=== PATIENT | male | born 1940 | race Caucasian/White ===

== ENCOUNTER 2020-11-16 12:45 | Day surgery (SDC) | payer MEDICARE, MEDICAID ==
[~2020-11-16] VITALS: Ht 170.2 cm; Wt 77.3 kg
[~2020-11-16 12:45] MED LIST: ASPI81CH33 PO; BREO1INH3 INH; DONE5TAB82 PO; EZET10TA21 PO; GLIP10TA PO; LEVO50TA5 PO; LOPR1TAB6 PO; LR 1,000 ML IV SCH; NITR0.4S14 SL; NOXI1TAB PO; PANT40TA29 PO; PLAV1TAB2 PO; PRAV40TA2 PO; SING5CHW23 PO; SLOWTAB2 PO; TERA10CA3 PO; VENTAER INH; ZOLO50TA PO; [UNRECOGNIZED DRUG - OTHER] PO; ceFAZolin SOD 2 GM in IV 1 EA IV ONE
[2020-11-16] MEDS ORDERED: VITACAP8 PO (13:11)
[2020-11-16] MEDS ORDERED: VANCOMYCIN 1000MG/20ML VIAL As Ordered ONE (13:16)
[2020-11-16] MEDS ORDERED: LIDOCAINE 1% SDV 30ML VIAL As Ordered ONE (13:16)
[2020-11-16] MEDS ORDERED: POLYSPORIN TOPICAL OINTMENT 15GM As Ordered ONE (13:17)
[2020-11-16] MEDS ORDERED: MIDAZOLAM INJ 2MG/2ML VIAL (J2250 PER 1MG) As Ordered ONE (13:35)
[2020-11-16] MEDS ORDERED: fentaNYL 100 MCG/2 ML INJECTION (J3010) As Ordered ONE (13:36)
[2020-11-16] MEDS ORDERED: propofoL 200 MG/20 ML VIAL As Ordered ONE (13:37)
[2020-11-16] MEDS ORDERED: ceFAZolin SOD 1 GM in D5W MINI-BAG PLUS 50 ML IV ONE (13:40)
[2020-11-16] MEDS ORDERED: LIDOCAINE 2% 100MG/5ML SDV (FOR ANES.) As Ordered ONE (13:44)
[2020-11-16] MEDS ORDERED: ONDANSETRON 4MG/2ML VIAL As Ordered ONE (15:46)
--- NOTE | 2020-11-16 16:06 | RO ---
OPERATIVE NOTE DATE OF OPERATION: 11/16/2020 PREOPERATIVE DIAGNOSIS: Pacemaker battery depletion. POSTOPERATIVE DIAGNOSIS: Pacemaker battery depletion. FINDINGS: Pacemaker battery depletion. PROCEDURE PERFORMED: Explanation of old and implantation of new dual-chamber pacemaker pulse generator. SURGEON: Seng Garcia M.D. ANALYST COMPETITIVE INTELLIGENCE: None. ANESTHESIA: Lidocaine 1% local/monitored anesthetic care. SPECIMEN: Old [employer] dual-chamber pacemaker pulse generator. ESTIMATED BLOOD LOSS: Less than 5 mL. BLOOD PRODUCTS: None placed. DRAINS: None. COMPLICATIONS: None. DESCRIPTION OF PROCEDURE: The patient was prepped and draped over the left pectoral region. 3M Ioban film was applied. Lidocaine 1% was used for local anesthetic. An incision was made over the exiting pacemaker incision using a #15-blade. Fine scissor dissection and the 15-blade were used to dissect down to and through the anterior capsule overlying the pacemaker pulse generator. The tie-down suture holding the pacemaker pulse generator in place was cut and removed. The existing pacemaker lead terminal pins were removed from the head of the existing pacemaker pulse generator after loosening the set screws and were then plugged in directly into the new pacemaker pulse generator header and each was secured by tightening the set screws with the Hex screwdriver. A tug-pull test was applied to both leads to demonstrate that they were secure in the new pacemaker pulse generator header. The caudal aspect of the pacemaker pulse generator pocket was then expanded a small amount in the caudal direction by applying a small amount of PEAK PlasmaBlade cautery to open up the pocket a little bit further. The medium size TYRX Medtronic antimicrobial envelope was then cut into four pieces and placed into the pacemaker pocket. The new pacemaker pulse generator was then placed into the pacemaker pocket. The deep layers were closed using individual sutures consisting of 2-0 Vicryl. The skin was then approximated using ac. The patient tolerated the procedure well without any immediate complications. The pacemaker pulse generator that was removed was a [employer] Model [id number] with Serial No. [id number]; originally implanted 08/09/2009. The new pacemaker pulse generator implanted was a [employer]urity MRI with Model No. [id number] with Serial No. [id number]. The existing right ventricle pacemaker lead was a [employer] Model No. 1646T/52 with Serial No. [id number]. Testing of the existing right ventricle pacemaker lead through the new pacemaker pulse generator showed capture threshold of 1.0 V and 0.4 msec with R wave amplitude of 12.0 mV and impedance of 490 ohms. The existing right atrial lead was a [employer] Model No. 1688T/46 with Serial No. [id number]; originally implanted 08/09/2009. Device based testing in the operating room for the new pacemaker pulse generator for the right atrial lead showed a capture threshold of 0.6 V and 0.4 msec with P wave amplitude of 3.5 mV and lead impedance of 380 ohms. The original right ventricle lead was implanted 08/09/2009, as well.
[2020-11-16] MEDS ORDERED: METOPROLOL TART 50 MG TAB PO ONE (16:35)
[2020-11-16 16:44] VITALS: BP 190/90
[2020-11-16 17:42] VITALS: BP 170/90
== END 2020-11-16 17:42 | disposition home or self-care (01) ==
LOC: M SDC 12:45
PROVIDERS: ATTEND Internal Medicine Cardiovascular Disease
DX: Z45.010 Encounter for checking and testing of cardiac pacemaker pulse generator [battery] (principal); I10 Essential (primary) hypertension; Z98.61 Coronary angioplasty status; E78.5 Hyperlipidemia, unspecified; E11.9 Type 2 diabetes mellitus without complications; E03.9 Hypothyroidism, unspecified; J44.9 Chronic obstructive pulmonary disease, unspecified; K21.9 Gastro-esophageal reflux disease without esophagitis; Z79.01 Long term (current) use of anticoagulants; Z79.82 Long term (current) use of aspirin; Z86.73 Personal history of transient ischemic attack (TIA), and cerebral infarction without residual deficits; Z79.84 Long term (current) use of oral hypoglycemic drugs
CPT/HCPCS: 33228; C1785; J0690; J2250; J2405; J3010; U0002

== ENCOUNTER → 2020-11-23 | Outpatient (CLI) | payer MEDICARE, MEDICAID ==
[~2020-11-23] MED LIST changes: -LR 1,000 ML IV SCH; +VITACAP8 PO; -ceFAZolin SOD 2 GM in IV 1 EA IV ONE
--- NOTE | 2020-11-23 11:36 | REP ---
INDICATION: CHEST PAIN, UNSPECIFIED. COMPARISON: None. TECHNIQUE: PA and lateral FINDINGS: There is thoracic aortic tortuosity. The heart is not enlarged. There is a dual chamber bipolar pacemaker device in place. The lung raymond are clear and the pleural angles are sharp. The osseous structures are within normal limits for the patient's age. IMPRESSION: No acute cardiopulmonary disease. Findings as described above. <Electronically signed by Braeden Corral > 11/23/20 [id number]
== END ==
LOC: M LAB 10:06
PROVIDERS: ATTEND Physician Assistant
DX: R07.9 Chest pain, unspecified (principal); Z95.0 Presence of cardiac pacemaker